=== PATIENT | male | born 1990 | race Caucasian/White ===

== ENCOUNTER 2018-05-08 21:55 | Emergency (ER) | payer OTHER, BC ==
[2018-05-08] MEDS: HYDROCODONE/APAP (10/325) TAB PO (23:42)
[2018-05-09] MEDS: ONDANSETRON (ODT) 4 MG TAB ODT (02:04)
== END 2018-05-09 02:12 | disposition home or self-care (01) ==
LOC: FTE 05-09 02:12
DX: S99.921A Unspecified injury of right foot, initial encounter (principal); W23.1XXA Caught, crushed, jammed, or pinched between stationary objects, initial encounter; Y92.322 Soccer field as the place of occurrence of the external cause
CPT/HCPCS: 73660; 99283-25

== ENCOUNTER 2018-09-24 15:29 | Emergency (ER) | payer OTHER ==
[2018-09-24] MEDS: SOD CHLORIDE 0.9% 1,000 ML IV (18:39)
[2018-09-24] MEDS: ONDANSETRON 4 MG INJ IV (18:39)
[2018-09-24] MEDS: FAMOTIDINE 20 MG INJ IV (18:39)
[2018-09-24 18:48] LABS: ADD MAN DIFF? NO
[2018-09-24 18:50] LABS: BASOPHILS % 0.2 % (0.0-2.0); EOSINOPHILS # 0.1 10^3/ul (0.0-0.5); EOSINOPHILS % 2.3 % (0.0-7.0); HEMATOCRIT 42.4 % (42.0-52.0); HEMOGLOBIN 13.7 g/dl (14.0-18.0); LYMPHOCYTES # 1.6 10^3/ul (0.8-2.9); LYMPHOCYTES % 29.8 % (15.0-51.0); MEAN CORPUSCULAR HEMOGLOBIN 28.4 pg (29.0-33.0); MEAN CORPUSCULAR HGB CONC 32.3 g/dl (32.0-37.0); MEAN PLATELET VOLUME 9.8 fl (7.4-10.4); MONOCYTE # 0.7 10^3/ul (0.3-0.9); MONOCYTES % 12.9 % (0.0-11.0); NEUTROPHIL # 2.9 10^3/ul (1.6-7.5); NEUTROPHILS % 54.6 % (39.0-77.0); PLATELET COUNT 219 10^3/UL (140-415); RED BLOOD COUNT 4.82 10^6/ul (4.70-6.10); RED CELL DISTRIBUTION WIDTH 12.2 % (11.5-14.5)
[2018-09-24 18:50] LABS: WHITE BLOOD COUNT 5.3 10^3/ul (4.8-10.8)
[2018-09-24 19:10] LABS: ALBUMIN 4.3 g/dl (3.3-4.9); ASPARTATE AMINO TRANSFERASE 124 IU/L (15-46); BILIRUBIN,INDIRECT 1.5 mg/dl (0-1.1); BILIRUBIN,TOTAL 1.5 mg/dl (0.2-1.3); BLOOD UREA NITROGEN 15 mg/dl (7-20); CARBON DIOXIDE 30 mmol/L (21-31); Estimated GFR > 60 mL/min (>60); GLUCOSE 90 mg/dl (70-220)
[2018-09-24 19:26] LABS: ADD UMIC NO; UR ASCORBIC ACID NEGATIVE (NEGATIVE); UR BILIRUBIN (Dip) NEGATIVE (NEGATIVE); UR BLOOD (Dip) NEGATIVE (NEGATIVE); UR CALCIUM OXALATE CRYSTAL MANY /HPF (NONE SEEN); UR CLARITY SLIGHTLY CLOUDY (CLEAR); UR COLOR AMBER (YELLOW); UR GLUCOSE (Dip) NEGATIVE (NEGATIVE); UR KETONES (Dip) NEGATIVE (NEGATIVE); UR LEUKOCYTE ESTERASE (Dip) NEGATIVE Leu/ul (NEGATIVE); UR MUCUS MODERATE /HPF (NONE SEEN); UR NITRITE (Dip) NEGATIVE (NEGATIVE); UR RBC 1 /HPF (0-5); UR SPECIFIC GRAVITY (Dip) 1.029 (1.003-1.030); UR TOTAL PROTEIN (Dip) NEGATIVE (NEGATIVE); UR UROBILINOGEN (Dip) 2+ mg/dL (NEGATIVE); UR WBC 10 /HPF (0-5)
[2018-09-24 19:38] LABS: ALANINE AMINOTRANSFERASE 102 IU/L (13-69); ALBUMIN/GLOBULIN RATIO 1.38; ALKALINE PHOSPHATASE 85 IU/L (42-121); ANION GAP 10 (5-13); CALCIUM 9.6 mg/dl (8.4-10.2); CHLORIDE 102 mmol/L (97-110); LIPASE 56 U/L (23-300); SODIUM 142 mmol/L (135-144); TOTAL PROTEIN 7.4 g/dl (6.1-8.1)
[2018-09-24] MEDS: CIPROFLOXACIN 500 MG TAB PO (19:39)
== END 2018-09-24 20:12 | disposition home or self-care (01) ==
LOC: FTE 15:29
DX: K52.9 Noninfective gastroenteritis and colitis, unspecified (principal); N39.0 Urinary tract infection, site not specified
CPT/HCPCS: 36415; 74176; 80053; 81001; 81003; 83690; 85025; 96361; 96374; 96375; 99285-25

== ENCOUNTER 2018-12-29 21:11 | Emergency (ER) | payer OTHER ==
[2018-12-29] MEDS: SOD CHLORIDE 0.9% 1,000 ML IV (21:33)
[2018-12-29] MEDS: ONDANSETRON 4 MG INJ IV ×2 (21:33→22:32)
[2018-12-29] MEDS: HYDROmorphONE 1 MG/ML SYG IV (21:33)
[2018-12-29 21:36] LABS: ADD MAN DIFF? NO
[2018-12-29 21:39] LABS: WHITE BLOOD COUNT 9.7 10^3/ul (4.8-10.8)
[2018-12-29 21:39] LABS: BASOPHILS % 0.3 % (0.0-2.0); EOSINOPHILS # 0.1 10^3/ul (0.0-0.5); EOSINOPHILS % 0.6 % (0.0-7.0); HEMOGLOBIN 13.8 g/dl (14.0-18.0); LYMPHOCYTES # 2.5 10^3/ul (0.8-2.9); LYMPHOCYTES % 26.1 % (15.0-51.0); MEAN CORPUSCULAR HEMOGLOBIN 28.9 pg (29.0-33.0); MEAN CORPUSCULAR HGB CONC 33.7 g/dl (32.0-37.0); MEAN CORPUSCULAR VOLUME 85.8 fl (82.0-101.0); MEAN PLATELET VOLUME 10.2 fl (7.4-10.4); MONOCYTE # 0.7 10^3/ul (0.3-0.9); MONOCYTES % 7.6 % (0.0-11.0); NEUTROPHIL # 6.3 10^3/ul (1.6-7.5); NEUTROPHILS % 65.1 % (39.0-77.0); PLATELET COUNT 232 10^3/UL (140-415); RED BLOOD COUNT 4.78 10^6/ul (4.70-6.10); RED CELL DISTRIBUTION WIDTH 12.1 % (11.5-14.5)
[2018-12-29 22:08] LABS: ANION GAP 10 (5-13); BLOOD UREA NITROGEN 15 mg/dl (7-20); CARBON DIOXIDE 26 mmol/L (21-31); CHLORIDE 103 mmol/L (97-110); CREATININE 0.88 mg/dl (0.61-1.24); Estimated GFR > 60 mL/min (>60); GLUCOSE 99 mg/dl (70-220); POTASSIUM 3.5 mmol/L (3.5-5.1); SODIUM 139 mmol/L (135-144)
[2018-12-29] MEDS: DIAZEPAM 5 MG/ML SYG IV (22:32)
[2018-12-29] MEDS: ETOMIDATE 20 MG INJ IV (22:32)
== END 2018-12-30 00:39 | disposition home or self-care (01) ==
LOC: E/R 12-30 00:39
DX: S43.035A Inferior dislocation of left humerus, initial encounter (principal); F17.210 Nicotine dependence, cigarettes, uncomplicated; W18.39XA Other fall on same level, initial encounter; Y92.9 Unspecified place or not applicable
CPT/HCPCS: 23650; 36415; 71045; 73030; 80048; 85025; 94770; 96374; 96375; 96376; 99285-25